=== PATIENT | male | born 2000 | race Caucasian/White ===

== ENCOUNTER 2023-02-05 20:09 | Emergency (ER) | payer OTHER, SELFPAY ==
[2023-02-05 20:11] VITALS: PULSE 94; RESP 14; TEMP 36.7; O2SAT 100; BMI 20.5
--- NOTE | 2023-02-05 20:20 | ED_ITS ---
HPI - Extremity Problem General: Chief complaint: Extremity Injury, Lower Stated complaint: Injury Rt Ankle Time Seen by Provider: 02/05/23 20:20 History of Present Illness: Patient comes in for evaluation of injury to the right ankle that occurred just prior to arrival. Patient was playing basketball and rolled his ankle. Patient has significant swelling to the ankle and difficulty with weightbearing. Patient appears nontoxic. Patient appears in moderate pain. Associated symptoms: Deny chest pain or rash Review of Systems General: Reports: 10 or more systems reviewed and unremarkable except in HPI and below Card: Denies: chest pain Resp: Denies: dyspnea GI: Denies: nausea or vomiting : Denies: difficulty urinating Musc: Reports: extremity pain Skin/Breast: Denies: rash PFSH ED PFSH: Medical History (Updated 02/05/23 @ 20:38 by JONNA Davis) Insect sting Surgical History (Updated 04/26/22 @ 10:17 by Piyush Galvan NP) History of left knee surgery Family History (Updated 04/26/22 @ 10:17 by Piyush Galvan NP) Father Aspirin allergy Social History (Updated 04/26/22 @ 10:19 by Piyush Galvan NP) Smoking and tobacco status: never smoked Alcohol intake: never Substance/Drug Use: never 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 [employer] Physical Exam Const: COMMON NORMALS: alert Resp: COMMON NORMALS: normal respiratory effort and clear to auscultation bilaterally AUSCULTATION: clear to auscultation bilaterally Cardio: COMMON NORMALS: regular rate and regular rhythm RATE: regular rate RHYTHM: regular rhythm Extremity: RIGHT LOWER EXTREMITY: Yes foot & digits (Significant swelling to the lateral and medial part of the ankle ) Right ankle: Yes inspection, Yes palpation, Yes ROM (Decreased range of motion) and Yes neurovascular exam Neuro: SENSORIUM/ORIENTATION: Yes alert Skin: COMMON NORMALS: turgor normal GENERAL SKIN EXAM: turgor normal Course Vital Signs: Vital signs: Vital Signs Temperature 98.1 F 02/05/23 20:11 Pulse Rate 94 02/05/23 20:11 Respiratory Rate 14 02/05/23 20:11 Pulse Oximetry 100 02/05/23 20:11 Oxygen Delivery Me thod Room Air 02/05/23 20:11 MDM - Extremity (Nontraumatic) Medical Decision Making Specially on [id number] male patient comes in today with injury to the right ankle. Injury occurred while playing basketball and rolling the ankle. Patient has some significant swelling to the ankle lateral side. Pulses are intact. Sensation is intact. Differential diagnosis includes not limited to sprain, fracture, dislocation. X-ray noted no dislocation or fracture. There is significant swelling to the ankle recommended follow-up with foot and ankle specialist for further evaluation and treatment. Patient reported understanding and agreed with plan. Discharge Plan Discharge Patient Disposition: Home Clinical Impression: High ankle sprain of right lower extremity Qualifiers: Encounter type: initial encounter Qualified Code(s): S93.491A - Sprain of other ligament of right ankle, initial encounter Condition: Stable Prescriptions: No Action prednisone 10 mg tablet PO Zyrtec 10 mg capsule 10 mg PO DAILY PRN guaifenesin [Mucinex] 600 mg tablet extended release 12hr 600 mg PO Q12H PRN epinephrine [EpiPen 2-Christopher] 0.3 mg/0.3 mL auto-injector 0.3 mg IM Q4H PRN (Reason: anaphylaxis) Qty: 2 0RF Discharge Orders: Discharge ED (Routine); Ordered 02/05/23 Ordered By: Gabriele Conway Discharge Diet: Usual diet Discharge Activity: Increase activity as tolerated Patient Instructions: Ankle Sprain (ED) Activity Restrictions/Additional Instructions: Home and rest. Elevate ankle as much as possible for the next 2 to 3 days to get the swelling down. Use ice on and off several times a day for pain and swelling. Use acetaminophen and ibuprofen for discomfort. Follow-up with primary care or senior accounts payable specialist for further treatment and evaluation. customer pricing manager will contact you regarding a follow-up appointment with foot and ankle surgeon for further evaluation. Return to ED for new concerns. Coding Level of Care Code ED Supervisor [facility] [place]
--- NOTE | 2023-02-05 20:20 | XRR_ITS ---
PROCEDURE INFORMATION: Exam: XR Right Ankle Exam date and time: 02/05/2023 8:26 PM Age: 22 years old Clinical indication: Injury or trauma; Other: Twist injury; Sprain or strain and swelling (edema); Ankle; Right TECHNIQUE: Imaging protocol: Radiologic exam of the right ankle. Views: 3 or more views. COMPARISON: No relevant prior studies available. FINDINGS: Bones/joints: Osseous structures are intact. Negative for fracture. Joint spaces are preserved. Soft tissues: Soft tissue swelling around the ankle. XR/XR ankle RT min 3V* [id number] IMPRESSION: No acute osseous abnormalities.
[2023-02-05] MEDS: HYDROcodone-acetaminophen 5-325 mg Tablet 1 TAB PO (20:37)
--- NOTE | 2023-02-06 08:27 | DCPLANNER ---
Addendum entered by Kitty Ferrara 02/08/23 08:57: Patient had a follow up appointment scheduled with ortho - patient did attend appointment. Original Note: software test manager had message to schedule a follow up appointment for patient with podiatry. software test manager sent patients information to the front office staff at podiatry. Patients information will be printed and reviewed. Clinic will call patient with appointment information.
--- NOTE | 2023-02-08 14:45 | DCPLANNER ---
modeling agency manager called patient due to no primary care physician - patient declines at this time.
== END 2023-02-05 21:13 | disposition home or self-care (01) ==
PROVIDERS: Emergency Provider Nurse Practitioner Family
DX: S93.491A Sprain of other ligament of right ankle, initial encounter (principal); X50.1XXA Overexertion from prolonged static or awkward postures, initial encounter; Y93.67 Activity, basketball
CPT/HCPCS: 73610; 99283; E0114

== ENCOUNTER → 2023-02-21 10:43 | Outpatient (BNVA) | payer OTHER, SELFPAY | PROVIDERS: Visit Provider Podiatrist Foot & Ankle Surgery | DX: S93.401A Sprain of unspecified ligament of right ankle, initial encounter (principal); X58.XXXA Exposure to other specified factors, initial encounter | CPT/HCPCS: 73610; 73620 ==

== ENCOUNTER 2023-02-21 13:49 | Outpatient (CLI) | payer OTHER, SELFPAY | END 2023-02-21 13:50 | disposition home or self-care (01) | LOC: SPT 13:50 | PROVIDERS: Visit Provider Podiatrist Foot & Ankle Surgery | DX: Z46.89 Encounter for fitting and adjustment of other specified devices (principal); S93.401D Sprain of unspecified ligament of right ankle, subsequent encounter; X58.XXXD Exposure to other specified factors, subsequent encounter | CPT/HCPCS: 97760; 99213; L4361 ==

== ENCOUNTER → 2023-03-07 11:11 | Outpatient (BNVA) | payer OTHER, SELFPAY | PROVIDERS: Visit Provider Podiatrist Foot & Ankle Surgery | DX: M25.571 Pain in right ankle and joints of right foot (principal) | CPT/HCPCS: 99213 ==

== ENCOUNTER 2023-03-07 14:52 | Outpatient (CLI) | payer OTHER, SELFPAY | END 2023-03-07 14:53 | disposition home or self-care (01) | LOC: SPT 14:52 | PROVIDERS: Visit Provider Podiatrist Foot & Ankle Surgery | DX: Z46.89 Encounter for fitting and adjustment of other specified devices (principal); M25.571 Pain in right ankle and joints of right foot | CPT/HCPCS: 97760; L1902 ==

== ENCOUNTER → 2023-03-30 11:13 | Outpatient (BNVA) | payer OTHER, SELFPAY | PROVIDERS: Visit Provider Podiatrist Foot & Ankle Surgery | DX: S93.401A Sprain of unspecified ligament of right ankle, initial encounter (principal); X58.XXXA Exposure to other specified factors, initial encounter | CPT/HCPCS: 99213 ==

== ENCOUNTER → 2023-05-12 09:13 | Outpatient (BNVA) | payer OTHER, SELFPAY | PROVIDERS: Visit Provider Podiatrist Foot & Ankle Surgery | DX: S93.401A Sprain of unspecified ligament of right ankle, initial encounter; X58.XXXA Exposure to other specified factors, initial encounter | CPT/HCPCS: 99213 ==

== ENCOUNTER 2023-05-22 08:24 | Outpatient (RCR) | payer OTHER, SELFPAY | END 2023-06-08 23:59 | disposition home or self-care (01) | LOC: SPT 08:24 | PROVIDERS: Visit Provider Podiatrist Foot & Ankle Surgery | DX: S93.421D Sprain of deltoid ligament of right ankle, subsequent encounter (principal); X58.XXXD Exposure to other specified factors, subsequent encounter | CPT/HCPCS: 97110; 97112; 97161 ==

== ENCOUNTER 2023-06-09 06:00 | Outpatient (RCR) | payer OTHER, SELFPAY | END 2023-06-27 23:59 | disposition home or self-care (01) | LOC: SPT 06:00 | PROVIDERS: Visit Provider Podiatrist Foot & Ankle Surgery | DX: S93.421D Sprain of deltoid ligament of right ankle, subsequent encounter (principal); X58.XXXD Exposure to other specified factors, subsequent encounter | CPT/HCPCS: 97110; 97112 ==

== ENCOUNTER → 2023-06-27 09:17 | Outpatient (BNVA) | payer OTHER, SELFPAY | PROVIDERS: Visit Provider Podiatrist Foot & Ankle Surgery | DX: S93.401A Sprain of unspecified ligament of right ankle, initial encounter; X58.XXXA Exposure to other specified factors, initial encounter | CPT/HCPCS: 99213 ==

== ENCOUNTER 2025-07-23 19:48 | Emergency (ER) | payer OTHER, SELFPAY ==
--- OUTSIDE RECORDS SUMMARY | 2015-07-17 19:00 | XMS_ITS | Continuity of Care Document ---
Author Organization [facility] Enrique Address [address] [place] [address] Phone Care Team Providers Care Habilitation Assistant Name Role Phone Unavailable Unavailable Unavailable Advance Directives Directive Yes / No Effective Date File Name No Information Encounters Encounter Description Practice Location Reason(s) For Visit Diagnoses Date Provider Providers Copied on [facility]counter [facility] [address], [place], [address], [place] tel:[phone] [facility] No Information 0-201 5 No Information Referring Provider: SIMIN FULLER L, [address] [place], [address]. tel:[phone] Family History Family Member Type Diagnosis Age At Onset No Information Payers Payer name Insurance type Covered constitution party ID Authorlinda del angel(s) JAYLON PPO [id number] CI [id number] Social History Type Description Quantity Date Captured Comments Sex Male Smoking Status No Information Chief Complaint And Reason For Visit No Information History Of Present Illness Encounter Date Complaint History Of Prese nt Illness No Information Instructions Date Instruction Additional Infor mation No Information Assessments Type Assessment Date No Information
[2025-07-23] VITALS (7 sets, daily range): BP systolic 94–148; BP diastolic 43–78; PULSE 51–107; RESP 16–19; TEMP 36.9; O2SAT 94–100
--- OUTSIDE RECORDS SUMMARY | 2025-07-23 19:52 | XMS_ITS | Data Portability ---
Author Organization MAYELIN Julio César 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 Not available 09/10/2024 13:42:27 Plan of Treatment Reminders Order Date Submit Date Provider Last Modified By Organization Details Last Modified Time Details Appointments None recorded. Lab CMP, serum or plasma 2023 024 [facility], [address] [place] [address], [address], 15:00:38 CBC 2023 024 [facility], [address] [place] [address], [address], 14:35:14 Referral None recorded. Procedures None recorded. Surgeries None recorded. Imaging XR, chest, 2 view 2023 024 [facility] ([facility]), [address] [place], [address], 15:05:17 XR, hand, 3 or more view [email or web address] [place] [address] ([facility]), [address] [place], [address], 09:37:23 Medication Orders albuterol sulfate HFA 90 mcg/actuati on aerosol inhaler 2023 [id number], [address], [address], [place], [address], 4 13:41:53 prednisone 20 mg tablet 2023 [facility] #[id number], [address], [address], [place], [address], 4 13:41:53 Zithromax Z-Chrisotpher 250 mg tablet 2023 [id number], [address] [facility] [address], [place], [address], 13:41:52 Patient TargetsNo targets recorded. Patient Instructions Encounter Date Encounter Id Patient Instructions Last Modified By Organization Details Last Modified Time 09/10/2024 [id number] Call or return for questions or concerns. Encouraged patient to get established with PCP. If this does not clear his cough, he will need referral to pulmonology. Not available 09/10/2024 13:42:23 Reason for Referral None Reported. Results Created Date Observation Date Name Description Value Unit Range Abnormal Flag Note LastModifiedBy Organization Detail LastModifiedTime 09/10/2009/10/2024 CBC WBC 10.6 x10 4.5-10 .5 high Not Available [facility] [address], [place], [address], 09/10/2024 14:35:14 09/10/20 24 09/10/2024 CBC RBC 4.86 x10 4.30-5 .90 Not Available [facility] [address], [place], [address], 09/10/2024 14:35:14 09/10/20 24 09/10/2024 CBC HGB 14.7 g/dL 13.5-1 8.0 Not Available [facility] [address] [facility], [place], [address], 09/10/2024 14:35:14 09/10/20 24 09/10/2024 CBC HCT 41.3 % 35.0-6 0.0 Not Available [facility] [address], [place], [address], 09/10/2024 14:35:14 09/10/20 24 09/10/2024 CBC MCV 84.9 fL 80.0-9 9.9 Not Available [facility] [address] [facility] [address] [facility], [place], [address], 09/10/2024 14:35:14 09/10/20 24 09/10/2024 CBC MCH 30.2 pg 27.0-3 2.0 Not Available [facility] [address] [facility], [place], [address], 09/10/2024 14:35:14 09/10/20 24 09/10/2024 CBC MCHC 35.5 g/dL 32.0-3 6.0 Not Available [facility] [address] [facility] [address] [facility], [place], [address], 09/10/2024 14:35:14 09/10/20 24 09/10/2024 CBC RDW 13.4 % 11.5-1 4.5 Not Available [facility] [address] [facility], [place], [address], 09/10/2024 14:35:14 09/10/20 24 09/10/2024 CBC plt 184.1 x10 150.0- 451.0 Not Available [facility] [address] [facility], [place], [address], 09/10/2024 14:35:14 09/10/20 24 09/10/2024 CBC lymphocytes % 11.5 % 20.0-5 0.0 low Not Available [facility] [address] [facility], [place], [address], 09/10/2024 14:35:14 09/10/20 24 09/10/2024 CBC granulcytes % 79.1 % 30.0-7 0.0 high Not Available [facility] [address] [facility], [place], [address], 09/10/2024 14:35:14 09/10/20 24 09/10/2024 CBC monocytes % 7.4 % 2.0-16 .0 Not Available [facility] [address] [facility], [place], [address], 09/10/2024 14:35:14 09/10/20 24 09/10/2024 CBC granulcytes# 8.3 x10 Not Tamica ilable [facility] [address] [facility], [place], [address], 09/10/2024 14:35:14 09/10/20 24 09/10/2024 CBC lymphocytes # 1.2 x10 Not Available [facility] [address] [facility], [place], [address], 09/10/2024 14:35:14 09/10/20 24 09/10/2024 CBC monocytes # 0.8 x10 Not Avai lable [facility] [address] [facility], [place], [address], 09/10/2024 14:35:14 09/10/20 24 09/10/2024 CMP (MALE ) glucose 98.0 mg/dL 60.0-9 9.0 Not Available [facility] [address] [facility], [place], [address], 09/10/2024 15:00:37 09/10/20 24 09/10/2024 CMP (MALE ) BUN (blood urea nitrogen) 15.0 mg/dL 10.0-2 6.0 Not Available [facility] [address] [facility] [place], [address], 09/10/2024 15:00:37 09/10/20 24 09/10/2024 CMP (MALE ) creatinine (serum) 1.2 mg/dL 0.4-1. 5 Not Available [facility] [address] [facility] [place], [address], 09/10/2024 15:00:37 09/10/20 24 09/10/2024 CMP (MALE ) BUN/creatini ne ratio 12.50 ratio Not Available [facility] [address] [facility], [place], [address], 09/10/2024 15:00:37 09/10/20 24 09/10/2024 CMP (MALE ) eGFR calculated 80.5 Not Available [facility] [address] [facility], [place], [address], 09/10/2024 15:00:37 09/10/20 24 09/10/2024 CMP (MALE ) total protein 7.5 g/dL 6.0-8. 5 Not Available [facility] [address] [facility], [place], [address], 09/10/2024 15:00:37 09/10/20 24 09/10/2024 CMP (MALE ) total bilirubin 1.6 mg/dL 0.2-1. 3 high Not Available [facility] [address] [facility], [place], [address], 09/10/2024 15:00:37 09/10/20 24 09/10/2024 CMP (MALE ) albumin 5.0 g/dL 3.5-5. 5 Not Available [facility] [address] [facility], [place], [address], 09/10/2024 15:00:37 09/10/20 24 09/10/2024 CMP (MALE ) globulin 2.5 calc Not Available [facility] [address] [facility], [place], [address], 09/10/2024 15:00:37 09/10/20 24 09/10/2024 CMP (MALE ) AST (SGOT) 25.0 U/L 0.0-46 .0 Not Available [facility] [address] [address], [place], [address], 09/10/2024 15:00:37 09/10/20 24 09/10/2024 CMP (MALE ) altv (SGPT) 21.0 U/L 13.0-6 9.0 normal Not Available [facility] [address] [address], [place], [address], 09/10/2024 15:00:37 09/10/20 24 09/10/2024 CMP (MALE ) A/G ratio 2.0 ratio Not Available [facility] [address] [facility], [place], [address], 09/10/2024 15:00:37 09/10/20 24 09/10/2024 CMP (MALE ) ALP phos 57.0 U/L 30.0-1 40.0 normal Not Available [facility] [address] [facility], [place], [address], 09/10/2024 15:00:37 09/10/20 24 09/10/2024 CMP (MALE ) calcium 9.9 mg/dL 8.4-10 .5 Not Available [facility] [address] [facility], [place], [address], 09/10/2024 15:00:37 09/10/20 24 09/10/2024 CMP (MALE ) sodium 139.0 mmol/ L 136.0- 145.0 Not Available [facility] [address] [facility], [place], [address], 09/10/2024 15:00:37 09/10/20 24 09/10/2024 CMP (MALE ) potassium 4.1 mmol/ L 3.5-5. 1 Not Available [facility] [address] [facility], [place], [address], 09/10/2024 15:00:37 09/10/20 24 09/10/2024 CMP (MALE ) chloride 102.0 mmol/ L 98.0-1 10.0 normal Not Available [facility] [address] [facility], [place], [address], 09/10/2024 15:00:37 09/10/20 24 09/10/2024 CMP (MALE ) C02 29.0 mmol/ L 22.0-3 1.0 Not Available [facility] [address] [facility], [place], [address], 09/10/2024 15:00:37 09/10/20 24 09/10/2024 CMP (MALE ) anion gap 8.0 calc Not Available [facility] [address] [facility], [place], [address], 09/10/2024 15:00:37 09/10/20 24 09/10/2024 CMP (MALE ) osmolality 287.9 calc Not Available [facility] [address] [facility], [place], [address], 09/10/2024 15:00:37 01/24/20 01/21/2024 XR, hand, 3 or more view No observ ation record ed. [email or web address] [address], [place], [address], 09/10/2024 13:35:52 09/10/20 24 12/29/2024 XR, chest , 2 view No observ ation record ed. [email or web address] [facility] ([facility]) [address] [place], [address], 12/29/2024 22:39:00 09/11/20 24 09/10/2024 XR, chest , 2 view No observ ation record ed. [email or web address] [facility] ([facility]) [address] [place], [address], 09/25/2024 19:31:02 Result Notes None recorded. Procedures Surgical History Date Name Laterality Status Provider Name and Address Organization Details Recorded Time 09/10/2024 plain X-ray of chest completed CHRISTOPHER Witt [facility], [facility] 09/11/2024 19:42:41 Imaging Results None recorded. Procedure Notes None recorded. Medical Equipment None Reported. Allergies No known drug allergies Medications Name Sig Start Date Stop Date Status Note LastModified by Organization Details LastModified Time prednison e 10 mg tablet daily 09/10 completed 4 tabs a day for 3 days 3 tabs a day for 3 days 2 tabs a day for 3 days 1 tab a day for 3 days; Recorded 04/23/20 3:20PM by Liam Spenceric al Summary; Refill Quantity : 0; Not Available Not Available Not Available prednison e 20 mg tablet Take 2 tablets every day by oral route for 5 days. 2023 active Not Available Not Available Not Avai lable Zithromax Z-Christopher 250 mg tablet TAKE 2 TABLETS (500 MG) BY ORAL ROUTE ONCE DAILY FOR 1 DAY THEN 1 TABLET (250 MG) BY ORAL ROUTE ONCE DAILY FOR 4 DAYS 2023 active Not Available Not Available Not Avai lable albuterol sulfate HFA 90 mcg/actua tion aerosol inhaler TAKE 2 PUFFS BY MOUTH EVERY 4 HOURS NEEDED 2023 active Not Available Not Available Not Avai lable Vitals Date Recorded Body height Body mass index (BMI) Body weight Oxygen saturation Oxygen saturation in Arterial blood by Pulse oximetry Heart rate Respiratory rate Body temperature Systolic And Diastolic Provider Name and Address Organization Details Last Updated DateTime 4 190.5 cm 22.9 kg/m2 06018.4 g 98 % 98 % 96 /min 20 /min 97.1 [degF] 120/70 mm[Hg] Laura Manuel [facility] 4 14:36:27 Date Recorded Body height Body mass index (BMI) Body weight Oxygen saturation Oxygen saturation in Arterial blood by Pulse oximetry Heart rate Body temperature Systolic And Diastolic Provider Name and Address Organization Details Last Updated DateTime 4 190.5 cm 23.7 kg/m2 03500.5 5 g 99 % 99 % 84 /min 98.4 [degF] 132/84 mm[Hg] Rosieubaldoyared Duane [facility] 4 13:31:09 Social History None recorded. Functional Status None recorded. Mental Status None recorded. Family History Nothing Reported. Medical History No medical history recorded. Past Encounters Encounter ID Performer Location Encounter Start Date Encounter Closed Date Diagnosis/Indication Diagnosis SNOMED-CT Code Diagnosis ICD10 Code Diagnosis IMO Codes Diagnosis Note [id number] JONNA JONES [facility] ([facility]) [address] [place] [phone] 01/21/2024 14:19:15 01/21/2024 16:10:46 Pain in finger of left hand [id number] 96916 M79.101 will send x ray to radiology for review. Finger splinted. [place] [id number] JONNA CHE [facility] ([facility]) [address] [place] [address] 09/10/2024 13:24:22 09/10/2024 13:44:31 Persistent cough [id number] R05.3 Health Concerns Section Related Observation LastModified by Organization Detai ls LastModified Time None Recorded Concern Status LastModified by Organization Details LastModified Time None Recorded Advance Directives Directive None Recorded Payers Insurance Date Sequence Insurance Name Policy Number Policy Reyna Covered Member ID Reyna Member ID Guarantor Name 09/10/2024 1 [place] Gabriele Lazcano Ingalsbe [id number] Gabriele Lazcano Ingalsbe 09/10/2024 1 [employer] [id number] Naveed Lowealsbe [id number] Gabriele Lazcano Ingalsbe 01/21/2024 1 *SELF PAY* Wi fabian Lazcano Ingalsbe 09/10/2024 1 [employer] [id number] Gabriele Lazcano Ingalsbe [id number] Gabriele Lazcano Ingalsbe Notes Date Note Type Note Provider Name and Address Organization Details Recorded Time 01/21/2024 text/html Joint PainReport ed by PatientHPIFor quality, patient reportssharp. For location, patient reportsleft fourth finger. For severity, patient reportsno driving impairment. For timing, patient reportsintermittent. For context, patient reportstrauma. For alleviating factors, patient reportsrest. For aggravating factors, patient reportsmovement/positi oningandtwisting(exten ding finger). For associated symptoms, patient reportsno weak limbsandno tingling. For duration, (1 day).Patient states that he was playing basketball when the ball hit his ring finger of the left hand. He denies jamming it. Patient states that he has some range of motion loss as well as swelling and bruising.ROS as noted in the HPI JONNA JONES [address] [place], [address], [facility] 01/21/2024 16:16:44 09/10/2024 text/html CoughReported by PatientHPIFor severity, patient reportsworsening. For associated symptoms, patient reportschest painandshortness of breathbut reportsno feverandno chills. For quality, patient reportsproductiveanddr y. For duration, patient reportsconstant. For context, patient reportsnon-smoker. For modifying factors, patient reportsinhaler.ROS as noted in the HPI walk in: Says that he has felt like he had a cold for the last few days. Says that he was taking dayquil and Nyquil and that they have not been helping. Says that he has had a constant urge to cough for about a year now, and having the cold for the last two days has made it feel like he is short as breath. PCP: none [facility], [address], [address], [facility] 09/10/2024 13:43:42
--- OUTSIDE RECORDS SUMMARY | 2025-07-23 19:52 | XMS_ITS | Clinical Summary ---
Author Organization [employer] Address [address] 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 Gender Identity Not on file Sexual Orientation Not on file Last Filed Vital Signs Vital Sign Reading Time Taken Comments Blood Pressure 114/72 07/20/2015 10:11 PM CDT Pulse - - Temperature 37.1 C (98.7 F) 07/20/2015 7:28 PM CDT Respiratory Rate 18 07/20/2015 9:15 PM CDT Oxygen Saturation - - Inhaled Oxygen Concentration - - Weight 54.4 kg (120 lb) 07/20/2015 7:28 PM CDT Height 175.3 cm (5' 9 ) 07/20/2015 7:28 PM CDT Body Mass Index 17.72 07/20/2015 7:28 PM CDT Plan of Treatment Health Maintenance Due Date Last Done Comments HPV VACCINES (1 - Male 3-dose series) 2017 DTAP/TDAP/TD VACCINES (1 - Tdap) 2021 HEPATITIS B VACCINES (1 of 3 - 19+ 3-dose series) 04/2021 INFLUENZA VACCINE (#1) 2025 Care Teams Engraver Apprentice Decorative Relationship Specialty Start Date End Date Non-Staff, Physician NO ADDRESS ON FILE PCP - General 07/20/15
--- OUTSIDE RECORDS SUMMARY | 2025-07-23 19:52 | XMS_ITS | Clinical Summary ---
Author Organization [facility] Address [address] [place] [address] Phone Care Team Providers Care Field Nurse Name Role Phone Non-Staff, Physician Primary Care Provider Unava ilable Allergies No known active allergies Medications No known medications Social History Tobacco Use Types Packs/Day Years Used Date Smoking Tobacco: Never Smokeless Tobacco: Never Alcohol Use Standard Drinks/Week Comments No 0 (1 standard drink = 0.6 oz pur e alcohol) Sex and Gender Information Value Date Recorded Sex Assigned at Not on file Legal Sex Male 7:23 PM CDT Gender Identity Not on file Sexual Orientation Not on file Last Filed Vital Signs Vital Sign Reading Time Taken Comments Blood Pressure 114/72 07/20/2015 10:11 PM CDT Pulse - - Temperature 37.1 C (98.7 F) 07/20/2015 7:28 PM CDT Respiratory Rate 18 07/20/2015 9:15 PM CDT Oxygen Saturation 98% 07/20/2015 10:11 PM CDT Inhaled Oxygen Concentration - - Weight 54.4 [...] 3-dose series) 04/2021 INFLUENZA VACCINE (#1) 2025 Insurance [employer] Care Teams Field Nurse Relationship Specialty Start Date End Date Non-Staff, Physician NO ADDRESS ON FILE PCP - General 07/20/15
--- NOTE | 2025-07-23 20:01 | W.ED.SEIZURE ---
HPI - Seizure General: Chief Complaint: Seizure Stated Complaint: Vagal response Time Seen by Provider: 07/23/25 20:00 History of Present Illness: HPI Narrative: 25yo M w/pmhx of vasovagal syncope s/p painful stimuli presenting w/cc of shaking, going in and out of consciousness, generalized body pain after injuring his finger. He states he jammed his right index finger and after started to experience symptoms that have been ongoing. Patient also had difficulty with speaking as his tongue was stuck to the roof of his mouth. He also has not eaten all day. Patient's mother is at bedside and is able to add to history. She states that when he was 12 years old, he had a similar event. She states that during basketball game, he hurt his finger, syncopized, suffered generalized shaking. At that time, he had a full neurology follow-up and although he did have an abnormal EEG at that time, they did not start him on medications as he had not had any recurrent events. Throughout the years, he had brief episodes such as this after painful stimulus but tonight, symptoms have been ongoing for longer than an hour which is unusual for patient. He states that usually, they last several minutes. Patient has not been ill. He denies any chest pain, shortness of breath, cough, hemoptysis, chills, malaise, abdominal pain, nausea, vomiting, diarrhea, dysuria in the past couple of days. Patient has not fallen or injured himself. He does not take any medications and denies any alcohol use, illicit drug use. Related Data Home Medications ?Medication ?Instructions ?Recorded ?Confirmed cetirizine 10 mg capsule (Zyrtec) 10 mg PO DAILY PRN 04/26/22 06/27/23 Previous Rx's ?Medication ?Instructions ?Recorded epinephrine 0.3 mg/0.3 mL 0.3 mg (0.3 mL) IM Q4H PRN 04/26/22 injection, auto-injector (EpiPen anaphylaxis #2 ea 2-Christopher) ASO brace #1 ea 03/07/23 Allergies Allergy/AdvReac Type Severity Reaction Status Date / Time red wasp sting Allergy Intermediate localized Uncoded 07/23/25 19:59 swelling and nasal congestion [facility] ED [facility]: Medical History (Updated 07/23/25 @ 22:58 by Rayna Martinez MD) Insect sting Surgical History History of left knee surgery Family History Father Aspirin allergy Social History Smoking and tobacco/nicotine status: never used tobacco/nicotine Alcohol intake: never Substance/Drug Use: never 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 Patient is alert and oriented. EOMI. PERRL. No trauma/injury to face or scalp. Patient is breathing comfortably, no increased WOB or accessory muscle use. SpO2 is above 95% on RA. Patient has clear lungs b/l. No hypotension. +Mild tachycardia. Abd is soft, nondistended and nontender. Patient is moving all extremities, no deformity or gross injury. Exam of R 2nd digit demostrates no obvious deformity, full flexion, extension, no swelling, bruising, though it is mildly painful w/palpation. No rash or skin changes. Course Vital Signs: Vital signs: Vital Signs Temperature 98.4 F 07/23/25 19:55 Pulse Rate 53 L 07/23/25 22:55 Respiratory Rate 18 07/23/25 22:55 Blood Pressure 94/43 07/23/25 22:55 Pulse Oximetry 96 07/23/25 22:55 Oxygen Delivery Me thod Room Air 07/23/25 21:48 MDM - Seizure MDM Narrative Medical decision making narrative: 25-year-old male with past medical history of vasovagal syncope especially when exposed to painful stimulus, presents with a chief complaint of shaking, going in and out of consciousness, tremulousness, generalized body pain, feeling like he had difficulty with speaking due to tongue stuck to the roof of the mouth (now resolved) after he jammed his finger. Differential diagnosis includes, is limited to, vasovagal syncope, dehydration, rhabdomyolysis, hypoglycemia, seizure, other. On exam he centrically stable though he is mildly tachycardic. Patient was screened basic lab work including CBC, CMP, lactic acid, CK and [id number] glucose and UA. Patient was treated with p.o. Tylenol and IM Toradol. He was given a meal. On reassessment, patient is feeling much better. He has a mildly elevated white blood cell count which is nonspecific. Patient has normal H/H and is not anemic. He does not have any actual electrolyte abnormalities, his normal kidney function, liver function, lactic acid and CK. UA is negative for infection. Patient refused x-ray of his digit, understanding that we may be missing a fracture. His presentation is not consistent with seizure, rhabdomyolysis, severe dehydration or hypoglycemia. Patient never did fully lose consciousness and I am less suspicious of syncope. None of these episodes have ever been associate with chest pain, shortness of breath and he has never suffered from exertional syncope. Patient is appropriate for discharge and outpatient management. Patient was counseled on supportive care at home, given return precautions and discharged in stable condition. Lab Data 07/23/25 21:07/23/25 21:17 Labs: Laboratory Results WBC 12.55 10^3/uL (3.29-11.43) H 07/23/25 21: RBC 4.74 10^6/uL (3.85-5.65) 07/23/25 21:17 Hgb 13.90 g/dL (11.27-16.99) 07/23/25 21:17 Hct 39.0 % (37-53) 07/23/25 21:17 MCV 82.3 fl (82-101) 07/23/25 21:17 MCH 29.3 pg (27-33) 07/23/25 21:17 MCHC 35.6 g/dL (30-55) 07/23/25:17 RDW 12.0 % (12.1-15.1) L 07/23/25 21:17 Plt Count 212 10^3/cmm (157-399) 07/23/25 21:17 MPV 9.0 fL (7.4-10.4) 07/23/25 21: Neut % (Auto) 83.6 % 07/23/25: Lymph % (Auto) 8.8 % 07/23/25 21: [place] % (Auto) 6.3 % 07/23/25 21: Eos % (Auto) 0.5 % 07/23/25: Baso % (Auto) 0.4 % 07/23/25: Neut # (Auto) 10.49 10^3/uL (1.8-7.7) H 07/23/25 21:17 Lymph # (Auto) 1.1 10^3/uL (0.8-4.8) 07/23/25 21:17 [place] # (Auto) 0.8 10^3/uL (0.2-0.9) 07/23/25 21:17 Eos # (Auto) 0.1 10^3/uL (0.0-0.8) 07/23/25 21:17 Baso # (Auto) 0.1 10^3/uL (0.0-0.1) 07/23/25 21:17 Nucleated RBC % (auto) 0 % 07/23/25 21:17 Nucleated RBCs # 0.0 /100WBC 07/23/25 21:17 Sodium 140 mmol/L (136-145) 07/23/25 21:17 Potassium 3.6 mmol/L (3.5-5.1) 07/23/25 21:17 Chloride 102 mmol/L (98-107) 07/23/25 21:17 Carbon Dioxide 26 mmol/L (22-29) 07/23/25 21:17 Anion Gap 15.6 (5-19) 07/23/25 21:17 BUN 15 mg/dL (6-20) 07/23/25 21:17 Creatinine 1.0 mg/dL (0.7-1.2) 07/23/25 21:17 GFR Calculation 92.6 mL/min (90-130) 07/23/25 21:17 Glucose 96 mg/dL (65-115) 07/23/25 21:17 POC Glucose 84 mg/dL (70-110) 07/23/25 21:06 Calculated Osmolality 291 mOsm/kg (285-295) 07/23/25 21:17 Lactic Acid 0.9 mmol/L (0.5-2.2) 07/23/25 21:17 Calcium 9.7 mg/dL (8.5-10.5) 07/23/25 21:17 Total Bilirubin 1.0 mg/dL (0.15-1.2) 07/23/25 21:17 AST 15 U/L (0-40) 07/23/25 21:17 ALT 11 U/L (0-41) 10/15/25 21:17 Alkaline Phosphatase 61 U/L (40-130) 07/23/25 21: Creatine Kinase 108 U/L (39-308) 07/23/25 21: Total Protein 6.6 g/dL (6.6-8.7) 07/23/25 21: Albumin 4.8 g/dL (3.5-5.2) 07/23/25: Globulin 1.8 g/dL (1.3-4.6) 07/23/25 21: Urine Color Yellow (Yellow) 07/23/25 21: Urine Appearance Clear (CLEAR) 07/23/25: Urine pH 7.5 (5-7) 07/23/25: Ur Specific [place] 1.025 (1.005-1.030) 07/23/25: Urine Protein Negative (Negative) 07/23/25: Urine Glucose (UA) Negative (Normal) 07/23/25: Urine Ketones Negative (Negative) 07/23/25: Urine Blood Negative (Negative) 07/23/25 21: Urine Nitrate Negative (Negative) 07/23/25: Urine Bilirubin Negative (Negative) 07/23/25: Urine Urobilinogen 1.0 mg/dL (Negative) 07/23/25: Ur Leukocyte Esterase Negative (Negative) 07/23/25: Urine RBC 0-2 /hpf (0-2) 07/23/25: Urine WBC 0-5 /hpf (0-5) 07/23/25: Ur Squamous Epith Cells 0-5 /hpf (0-5) 07/23/25 21: Amorphous Sediment Not Reportable 07/23/25: Urine Bacteria None seen /hpf (NONE) 07/23/25: Hyaline Casts 7.85 /lpf 07/23/25: No radiology studies performed this visit Discharge Plan Discharge Patient Disposition: Home Clinical Impression: Vasovagal near-syncope Condition: Stable Prescriptions: No Action Zyrtec 10 mg capsule 10 mg PO DAILY PRN epinephrine [EpiPen 2-Christopher] 0.3 mg/0.3 mL auto-injector 0.3 mg IM Q4H PRN (Reason: anaphylaxis) Qty: 2 0RF (DME) ASO brace See Rx Instructions .Route .MEDSUPPLY Qty: 1 0RF Rx Instructions: As directed Discharge Orders: Discharge ED (Routine); Ordered 07/23/25 Ordered By: Rayna Martinez Patient Instructions: Opioid Safety, Pain Management, Patient Portal & Alan Instructions, Near Syncope (ED) Activity Restrictions/Additional Instructions: Please continue to monitor your condition closely at home. If your condition worsens or additional concerns arise, please return to the emergency department for reassessment. Please follow-up with your primary care physician on an outpatient basis within 1 week. 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
[2025-07-23 21:24] LABS: Hematocrit 39.0 % (37-53); Hemoglobin 13.90 g/dL (11.27-16.99); Mean Corpuscular HGB Conc 35.6 g/dL (30-55); Mean Corpuscular Hemoglobin 29.3 pg (27-33); Mean Corpuscular Volume 82.3 fl (82-101); Nucleated Red Blood Cells % 0 %; Platelet Count 212 10^3/cmm (157-399); Red Blood Count 4.74 10^6/uL (3.85-5.65); White Blood Count 12.55 10^3/uL (3.29-11.43)
[2025-07-23 21:38] LABS: Glucose Urine UA Negative (Normal); Nitrate Urine Negative (Negative); Specific Gravity, Urine 1.025 (1.005-1.030)
[2025-07-23 21:41] LABS: Alanine Aminotransferase 11 U/L (0-41); Albumin Level 4.8 g/dL (3.5-5.2); Alkaline Phosphatase 61 U/L (40-130); Anion Gap 15.6 (5-19); Aspartate Amino Transferase 15 U/L (0-40); Blood Urea Nitrogen 15 mg/dL (6-20); Calcium 9.7 mg/dL (8.5-10.5); Carbon Dioxide 26 mmol/L (22-29); Chloride 102 mmol/L (98-107); Creatinine Clr Calc Pharmacy 133.2156; Globulin 1.8 g/dL (1.3-4.6); Glucose 96 mg/dL (65-115); Lactic Sepsis W/Reflex 0.9 mmol/L (0.5-2.2); Osmolality Calculated 291 mOsm/kg (285-295); Potassium 3.6 mmol/L (3.5-5.1); Sodium 140 mmol/L (136-145); Total Protein 6.6 g/dL (6.6-8.7)
[2025-07-23 21:42] LABS: Add Urine Microscopic? YES
[2025-07-23 22:08] LABS: UA Slide Review UA Slide Review Perf
== END 2025-07-23 23:10 | disposition home or self-care (01) ==
PROVIDERS: Emergency Provider Emergency Medicine
DX: R55 Syncope and collapse (principal)
CPT/HCPCS: 36415; 36416; 80053; 81001; 82550; 82962; 83605; 85025; 96372; 99284; J1885; J9999